=== PATIENT | female | born 1960 | race Caucasian/White ===

== ENCOUNTER → 2017-02-13 | Day surgery (SDC) | payer OTHER | END | disposition home or self-care (01) | LOC: FAS 06:42 | DX: G56.01 Carpal tunnel syndrome, right upper limb (principal); E78.00 Pure hypercholesterolemia, unspecified; F32.9 Major depressive disorder, single episode, unspecified; Z90.11 Acquired absence of right breast and nipple; Z90.710 Acquired absence of both cervix and uterus; Z85.3 Personal history of malignant neoplasm of breast; Z79.899 Other long term (current) drug therapy; Z98.890 Other specified postprocedural states | CPT/HCPCS: J2704; J3010 ==